=== PATIENT | female | born 1955 | race African-American/Black ===

== ENCOUNTER → 2020-01-21 | Day surgery (SDC) | payer OTHER ==
[~2020-01-21] MED LIST: BUPIVACAINE HCL 0.5 % INJ/PF 30 ML SDV ONE; LIDOCAINE 1% INJ-PF (10 MG/ML) 30 ML SDV ONE; METHYLPREDNISOLONE ACETATE INJ 80 MG/1 ML VIAL ONE
--- NOTE | 2020-01-21 13:59 | RADIOLOGY REPORT (SQ) ---
EXAM DESCRIPTION: INJECT/ASPIR HIP/SHLDR/KNEE; FLUORO/NEEDLE PLACEMENT IMAGES COMPLETED DATE/TIME: 01/21/2020 1:46 pm REASON FOR STUDY: OSTEOARTHRITIS OF HIP M16.0 BILATERAL PRIMARY OSTEOARTHRITIS OF HIP COMPARISON: None. FLUOROSCOPY TIME: 0.3 minutes 1 images saved to PACS. LIMITATIONS: None. PROCEDURE: SITE OF INJECTION: Right hip LOCALIZING CONTRAST TYPE AND DOSE: 1 mL Omnipaque 300 MEDICATION TYPE AND DOSE: 80 mg Depo-Medrol, 5 mL 0.5% bupivacaine Using local anesthesia and sterile technique with fluoroscopic guidance, the needle was advanced into the joint. Iodinated contrast was injected to verify intraarticular placement. This was followed by therapeutic injection of the indicated medications. The needle was removed. There were no immediat e complications. Preprocedure pain level: 7/10. Postprocedure pain level: 0/10. IMPRESSION: THERAPEUTIC INJECTION OF THE RIGHT HIP JOINT ABOVE. COMMENT: Patient medication list reviewed: Yes- Quality ID# [id number]:Eligible professional attests to doc umenting in the medical record they obtained, updated, or reviewed the patient's current medications. . Quality ID 145: Final reports for procedures using fluoroscopy that document radiation exposure gabby kishan, or exposure time and number of fluorographic images (if radiation exposure indices are not avail able) TECHNICAL DOCUMENTATION: JOB ID: [id number] 2010 [employer]- All Rights Reserved Reading location - IP/workstation name: [email or web address] [id number]
--- NOTE | 2020-01-21 13:59 | RADIOLOGY REPORT (SQ) ---
EXAM DESCRIPTION: INJECT/ASPIR HIP/SHLDR/KNEE; FLUORO/NEEDLE PLACEMENT IMAGES COMPLETED DATE/TIME: 01/21/2020 1:46 pm REASON FOR STUDY: OSTEOARTHRITIS OF HIP M16.0 BILATERAL PRIMARY OSTEOARTHRITIS OF HIP COMPARISON: None. FLUOROSCOPY TIME: 0.3 minutes 1 images saved to PACS. LIMITATIONS: None. PROCEDURE: SITE OF INJECTION: Right hip LOCALIZING CONTRAST TYPE AND DOSE: 1 mL Omnipaque 300 MEDICATION TYPE AND DOSE: 80 mg Depo-Medrol, 5 mL 0.5% bupivacaine Using local anesthesia and sterile technique with fluoroscopic guidance, the needle was advanced into the joint. Iodinated contrast was injected to verify intraarticular placement. This was followed by therapeutic injection of the indicated medications. The needle was removed. There were no immediat e complications. Preprocedure pain level: 7/10. Postprocedure pain level: 0/10. IMPRESSION: THERAPEUTIC INJECTION OF THE RIGHT HIP JOINT ABOVE. COMMENT: Patient medication list reviewed: Yes- Quality ID# [id number]:Eligible professional attests to doc umenting in the medical record they obtained, updated, or reviewed the patient's current medications. . Quality ID 145: Final reports for procedures using fluoroscopy that document radiation exposure gabby kishan, or exposure time and number of fluorographic images (if radiation exposure indices are not avail able) TECHNICAL DOCUMENTATION: JOB ID: [id number] 2010 [employer]- All Rights Reserved Reading location - IP/workstation name: [email or web address] [id number]
== END ==
LOC: RAD 12:35
PROVIDERS: ATTEND Family Medicine
DX: M16.0 Bilateral primary osteoarthritis of hip (principal)
CPT/HCPCS: 20610; 77002; J3490 ×2; J1040

== ENCOUNTER → 2020-02-04 | Day surgery (SDC) | payer OTHER ==
[~2020-02-04] MED LIST changes: -LIDOCAINE 1% INJ-PF (10 MG/ML) 30 ML SDV ONE
--- NOTE | 2020-02-04 14:40 | RADIOLOGY REPORT (SQ) ---
EXAM DESCRIPTION: INJECT/ASPIR HIP/SHLDR/KNEE; FLUORO/NEEDLE PLACEMENT IMAGES COMPLETED DATE/TIME: 02/04/2020 1:31 pm REASON FOR STUDY: M16.0 BILATERAL PRIMARY OSTEOARTHRITIS OF HIP M16.0 BILATERAL PRIMARY OSTEOARTHRI TIS OF HIP COMPARISON: None. FLUOROSCOPY TIME: 0.1 minutes of fluoroscopy was used. 1 images saved to PACS. LIMITATIONS: None. PROCEDURE: SITE OF INJECTION: Left hip LOCALIZING CONTRAST TYPE AND DOSE: 1 mL Omnipaque 300 MEDICATION TYPE AND DOSE: 80 mg Depo-Medrol and 5 mL Sensorcaine Using local anesthesia and sterile technique with fluoroscopic guidance, the needle was advanced into the joint. Iodinated contrast was injected to verify intraarticular placement. This was followed by therapeutic injection of the indicated medications. The needle was removed. There were no immediat e complications. Preprocedure pain level: 3/5. Postprocedure pain level: 1/5. IMPRESSION: THERAPEUTIC INJECTION OF THE LEFT HIP JOINT ABOVE. COMMENT: Patient medication list reviewed: Yes- Quality ID# [id number]:Eligible professional attests to doc umenting in the medical record they obtained, updated, or reviewed the patient's current medications. . Quality ID 145: Final reports for procedures using fluoroscopy that document radiation exposure gabby kishan, or exposure time and number of fluorographic images (if radiation exposure indices are not avail able) TECHNICAL DOCUMENTATION: JOB ID: [id number] 2010 [employer]- All Rights Reserved Reading location - IP/workstation name: [email or web address] [id number]
--- NOTE | 2020-02-04 14:40 | RADIOLOGY REPORT (SQ) ---
EXAM DESCRIPTION: INJECT/ASPIR HIP/SHLDR/KNEE; FLUORO/NEEDLE PLACEMENT IMAGES COMPLETED DATE/TIME: 02/04/2020 1:31 pm REASON FOR STUDY: M16.0 BILATERAL PRIMARY OSTEOARTHRITIS OF HIP M16.0 BILATERAL PRIMARY OSTEOARTHRI TIS OF HIP COMPARISON: None. FLUOROSCOPY TIME: 0.1 minutes of fluoroscopy was used. 1 images saved to PACS. LIMITATIONS: None. PROCEDURE: SITE OF INJECTION: Left hip LOCALIZING CONTRAST TYPE AND DOSE: 1 mL Omnipaque 300 MEDICATION TYPE AND DOSE: 80 mg Depo-Medrol and 5 mL Sensorcaine Using local anesthesia and sterile technique with fluoroscopic guidance, the needle was advanced into the joint. Iodinated contrast was injected to verify intraarticular placement. This was followed by therapeutic injection of the indicated medications. The needle was removed. There were no immediat e complications. Preprocedure pain level: 3/5. Postprocedure pain level: 1/5. IMPRESSION: THERAPEUTIC INJECTION OF THE LEFT HIP JOINT ABOVE. COMMENT: Patient medication list reviewed: Yes- Quality ID# [id number]:Eligible professional attests to doc umenting in the medical record they obtained, updated, or reviewed the patient's current medications. . Quality ID 145: Final reports for procedures using fluoroscopy that document radiation exposure gabby kishan, or exposure time and number of fluorographic images (if radiation exposure indices are not avail able) TECHNICAL DOCUMENTATION: JOB ID: [id number] 2010 [employer]- All Rights Reserved Reading location - IP/workstation name: [email or web address] [id number]
== END ==
LOC: RAD 12:37
PROVIDERS: ATTEND Family Medicine
DX: M16.0 Bilateral primary osteoarthritis of hip (principal); M25.551 Pain in right hip; M25.552 Pain in left hip
CPT/HCPCS: 20610; 77002; J3490; J1040

== ENCOUNTER 2020-04-21 12:42 | Day surgery (SDC) | payer OTHER ==
[2020-04-21] MEDS ORDERED: BUPIVACAINE HCL 0.5 % INJ/PF 30 ML SDV ONE (12:53)
[2020-04-21] MEDS ORDERED: LIDOCAINE 1% INJ-PF (10 MG/ML) 30 ML SDV ONE (12:53)
[2020-04-21] MEDS ORDERED: METHYLPREDNISOLONE ACETATE INJ 80 MG/1 ML VIAL ONE (12:53)
--- NOTE | 2020-04-21 14:37 | RADIOLOGY REPORT (SQ) ---
EXAM DESCRIPTION: INJECT/ASPIR HIP/SHLDR/KNEE; FLUORO/NEEDLE PLACEMENT IMAGES COMPLETED DATE/TIME: 04/21/2020 1:28 pm REASON FOR STUDY: (M16.11)UNILATERAL PRIMARY OSTEOARTHRITIS, RIGHT HIP M16.11 UNILATERAL PRIMARY OS TEOARTHRITIS, RIGHT HIP COMPARISON: None. FLUOROSCOPY TIME: 11 seconds of fluoroscopy was used. 1 images saved to PACS. LIMITATIONS: None. PROCEDURE: SITE OF INJECTION: Right hip LOCALIZING CONTRAST TYPE AND DOSE: 1 mL Omnipaque 300 MEDICATION TYPE AND DOSE: 80 mg Depo-Medrol and 5 mL Sensorcaine Using local anesthesia and sterile technique with fluoroscopic guidance, the needle was advanced into the joint. Iodinated contrast was injected to verify intraarticular placement. This was followed by therapeutic injection of the indicated medications. The needle was removed. There were no immediat e complications. Preprocedure pain level: 8/10. Postprocedure pain level: 0/10. IMPRESSION: THERAPEUTIC INJECTION OF THE RIGHT HIP JOINT ABOVE. COMMENT: Patient medication list reviewed: Yes- Quality ID# [id number]:Eligible professional attests to doc umenting in the medical record they obtained, updated, or reviewed the patient's current medications. . Quality ID 145: Final reports for procedures using fluoroscopy that document radiation exposure gabby kishan, or exposure time and number of fluorographic images (if radiation exposure indices are not avail able) TECHNICAL DOCUMENTATION: JOB ID: [id number] 2010 [employer]- All Rights Reserved Reading location - IP/workstation name: [email or web address] [id number]
--- NOTE | 2020-04-21 14:37 | RADIOLOGY REPORT (SQ) ---
EXAM DESCRIPTION: INJECT/ASPIR HIP/SHLDR/KNEE; FLUORO/NEEDLE PLACEMENT IMAGES COMPLETED DATE/TIME: 04/21/2020 1:28 pm REASON FOR STUDY: (M16.11)UNILATERAL PRIMARY OSTEOARTHRITIS, RIGHT HIP M16.11 UNILATERAL PRIMARY OS TEOARTHRITIS, RIGHT HIP COMPARISON: None. FLUOROSCOPY TIME: 11 seconds of fluoroscopy was used. 1 images saved to PACS. LIMITATIONS: None. PROCEDURE: SITE OF INJECTION: Right hip LOCALIZING CONTRAST TYPE AND DOSE: 1 mL Omnipaque 300 MEDICATION TYPE AND DOSE: 80 mg Depo-Medrol and 5 mL Sensorcaine Using local anesthesia and sterile technique with fluoroscopic guidance, the needle was advanced into the joint. Iodinated contrast was injected to verify intraarticular placement. This was followed by therapeutic injection of the indicated medications. The needle was removed. There were no immediat e complications. Preprocedure pain level: 8/10. Postprocedure pain level: 0/10. IMPRESSION: THERAPEUTIC INJECTION OF THE RIGHT HIP JOINT ABOVE. COMMENT: Patient medication list reviewed: Yes- Quality ID# [id number]:Eligible professional attests to doc umenting in the medical record they obtained, updated, or reviewed the patient's current medications. . Quality ID 145: Final reports for procedures using fluoroscopy that document radiation exposure gabby kishan, or exposure time and number of fluorographic images (if radiation exposure indices are not avail able) TECHNICAL DOCUMENTATION: JOB ID: [id number] 2010 [employer]- All Rights Reserved Reading location - IP/workstation name: [email or web address] [id number]
== END 2020-04-21 13:30 | disposition home or self-care (01) ==
LOC: RAD 12:42
PROVIDERS: ATTEND Family Medicine
DX: M16.11 Unilateral primary osteoarthritis, right hip (principal); M16.0 Bilateral primary osteoarthritis of hip
CPT/HCPCS: 20610; 77002; J3490 ×2; J1040